=== PATIENT | male | born 1985 | race African-American/Black ===

== ENCOUNTER 2017-06-03 12:00 | Inpatient (IN) | payer SELFPAY ==
[2017-06-03] MEDS ORDERED: SODIUM CHLORIDE 0.9% 1000ML 1,000 ML IVS ONE (13:41)
[2017-06-03] MEDS ORDERED: PANTOPRAZOLE INJECTION 80 MG in SODIUM CHLORIDE 0.9% 100ML 80 ML IVPB ONE (13:41)
--- NOTE | 2017-06-03 13:49 | ED.PDOC ---
History of Present Illness - General Chief Complaint: Abdominal Pain Stated Complaint: right sided abdominal pain Time Seen by Provider: 06/03/17 13:39 Information Source: patient Exam Limitations: no limitations - History of Present Illness Initial Comments: Susan Butterfield 31 y/o male stated that he had stabbing epigastric pain since Wednesday -3 days ago after drinking 10 cans of beer and eating barbecue tried cranberry juice ,antacid vitamins to eased of the pain but not better also tried to eat but felt nauseated and felt not getting better decided to come to er.Had previous episode of pancreatitis a year ago. Abdominal Pain Onset Location: epigastric Pain Radiation: no radiation Quality: stabbing Timing/Duration: getting worse, other - 3 days Improving Factors: nothing Worsening Factors: eating Associated Symptoms: other - see hpi Review of Systems - Review of Systems Constitutional: States: no symptoms reported EENTM: States: no symptoms reported Respiratory: States: no symptoms reported Cardiology: States: no symptoms reported Gastrointestinal/Abdominal: States: see HPI Genitourinary: States: no symptoms reported Musculoskeletal: States: no symptoms reported Skin: States: no symptoms reported Past Medical History (General) - Patient Medical History Hx Congestive Heart Failure: No Hx Diabetes: No Hx Other PMH: Yes - pancreatitis-alcohol related Surgical History: no surgical history - Vaccination History Hx Influenza Vaccination: No - Social History Hx Tobacco Use: Yes Family Medical History - Family History Father Family History: Unknown Living Status: Unknown Hx Family Hypertension: Yes - multiple family members Physical Exam - Physical Exam General Appearance: Alert, Comfortable, No apparent distress Eyes, Ears, Nose, Throat Exam: normal ENT inspection, pharynx normal Neck: full range of motion, supple Respiratory: lungs clear, normal breath sounds Cardiovascular/Chest: normal peripheral pulses, regular rate, rhythm, no murmur Peripheral Pulses: No deficit Gastrointestinal/Abdominal: normal bowel sounds, soft, tenderness - epigastrium and mid abdomen Back Exam: no vertebral tenderness Extremity: non-tender, no pedal edema, no calf tenderness Neurologic: alert, normal mood/affect, oriented x 3 Progress - Progress Progress: 06/03/17 13:52 Vital Signs - 8 hr 06/03/17 12:09 Temperature 98 F Pulse Rate [ 89 Right Brachial] Respiratory 20 Rate Blood Pressure 187/98 [Right Arm] O2 Sat by Pulse 98 Oximetry - Results/Orders Results/Orders: Laboratory Tests 06/03/17 06/03/17 06/03/17 12:30 12:30 13:08 WBC 11.9 H RBC 4.89 Hgb 15.6 Hct 45.2 MCV 92.5 MCH 31.9 H MCHC 34.5 RDW 13.8 Plt Count 232 MPV 7.3 L Absolute Neuts (auto) 8.70 H Absolute Lymphs (auto) 2.20 Absolute Monos (auto) 0.80 Absolute Eos (auto) 0.10 Absolute Basos (auto) 0.10 Neutrophils % 73.6 Lymphocytes % 18.5 L Monocytes % 6.5 Eosinophils % 0.8 L Basophils % 0.6 Sodium 136 Potassium 3.8 Chloride 99 L Carbon Dioxide 29 Anion Gap 11.8 L BUN 12 Creatinine 1.04 BUN/Creatinine Ratio 11.5 Random Glucose 132 H Serum Osmolality 273.6 L Calcium 9.9 Total Bilirubin 0.5 AST 70 H ALT 111 H Alkaline Phosphatase 92 Serum Total Protein 9.1 H Albumin 4.9 Globulin 4.2 H Albumin/Globulin Ratio 1.2 Lipase 612 H Urine Color Anita Urine Appearance Clear Urine pH 7.0 Ur Specific Ririe 1.020 Urine Protein 100 H Urine Glucose (UA) Negative Urine Ketones Trace Urine Blood Negative Urine Nitrite Negative Urine Bilirubin Small H Urine Urobilinogen 0.2 Ur Leukocyte Esterase Negative Urine RBC 0 Urine WBC 0 Ur Epithelial Cells 0 Urine Bacteria 0 Urine Mucus Moderate Urine Opiates Screen Urine Barbiturates Ur Phencyclidine Scrn U Amphetamin/Meth Scrn U Benzodiazepines Scrn U Cocaine Metab Screen U Cannabinoids Screen 06/03/17 13:40 WBC RBC Hgb Hct MCV MCH MCHC RDW Plt Count MPV Absolute Neuts (auto) Absolute Lymphs (auto) Absolute Monos (auto) Absolute Eos (auto) Absolute Basos (auto) Neutrophils % Lymphocytes % Monocytes % Eosinophils % Basophils % Sodium Potassium Chloride Carbon Dioxide Anion Gap BUN Creatinine BUN/Creatinine Ratio Random Glucose Serum Osmolality Calcium Total Bilirubin AST ALT Alkaline Phosphatase Serum Total Protein Albumin Globulin Albumin/Globulin Ratio Lipase Urine Color Urine Appearance Urine pH Ur Specific [place] Urine Protein Urine Glucose (UA) Urine Ketones Urine Blood Urine Nitrite Urine Bilirubin Urine Urobilinogen Ur Leukocyte Esterase Urine RBC Urine WBC Ur Epithelial Cells Urine Bacteria Urine Mucus Urine Opiates Screen Negative Urine Barbiturates Negative Ur Phencyclidine Scrn Negative U Amphetamin/Meth Scrn Negative U Benzodiazepines Scrn Negative U Cocaine Metab Screen Negative U Cannabinoids Screen Negative - EKG/XRAY/CT CT Ordered: Yes - abd /p-pancreatitis;GB-sono No gallstone Departure - Departure Clinical Impression: Abdominal pain Qualifiers: Abdominal location: epigastric Qualified Code(s): R10.13 - Epigastric pain Pancreatitis, alcoholic, acute Qualifiers: Acute pancreatitis complication: no infection or necrosis Qualified Code(s): K85.20 - Alcohol induced acute pancreatitis without necrosis or infection Cirrhosis of liver without ascites Qualifiers: Hepatic cirrhosis type: alcoholic cirrhosis Qualified Code(s): K70.30 - Alcoholic cirrhosis of liver without ascites Time of Disposition: 16:46 Disposition: Admit Patient Condition: Fair Departure Forms: Patient Portal Self Enrollment Home Medications: Ambulatory Orders NK [NK] 06/03/17 Decision To Admit - Decistion To Admit Decision to Admit Reason: Admit from ER Decision to Admit Date: 06/03/17 - D/W Susana Hall -ANP/Hospitalist for admit Decision to Admit Time: 16:46
[2017-06-03] MEDS ORDERED: SODIUM CHLORIDE 0.9% 100ML 100 ML IVPB ONE (14:25)
[2017-06-03] MEDS ORDERED: PANTOPRAZOLE SODIUM IV 40 MG VIAL ONE ×2 (14:25→14:27)
--- NOTE | 2017-06-03 14:29 | CT ---
EXAM DESCRIPTION: Abdomen/Pelvis w/Contrast CLINICAL HISTORY: pain COMPARISON: None. TECHNIQUE: Postcontrast CT images of the abdomen and pelvis are obtained using standard imaging protocol. This exam was performed according to our departmental dose-optimization program, which includes automated exposure control, adjustment of the mA and/or kV according to patient size and/or use of iterative reconstruction technique . FINDINGS: Visualized lung bases are unremarkable. The liver is mildly enlarged 16.4 cm. Severe diffuse heterogeneous decreased attenuation of the liver compared to the spleen is seen. No enhancing hepatic mass is identified. The pancreas, adrenal glands, and gallbladder are unremarkable. Heterogeneous enhancement of the head of the pancreas seen. There is moderate fat stranding around the head and neck of the pancreas with fat stranding and fluid attenuation extending around the 2nd-3rd portion of the duodenum. Fluid attenuation extends caudally from the duodenum measuring 2.5 cm AP by 11 cm transverse. Along the aortic bifurcation. No significant fluid collection in the paracolic gutter or left upper quadrant is seen. No peripherally enhancing fluid collection is seen at this time. No free air. Kidneys and ureters are unremarkable. Urinary bladder is contracted but partly filled with contrast. Prostate is unremarkable. The appendix is partly visualized and appears unremarkable. No small bowel obstruction. Increased volume of formed fecal material in the rectosigmoid colon suggests mild fecal impaction. No pathologic lymphadenopathy is seen. Osseous structures show no aggressive bony lesions. IMPRESSION: CT shows evidence of acute pancreatitis with fluid and inflammation around the head and neck of the pancreas. Small amount of fluid extends caudal to the second and third portions of the duodenum. No peripherally enhancing thick walled, drainable fluid collections are seen at this time. Mild hepatomegaly with significant diffuse fatty infiltration of the liver is seen. No obvious biliary tract obstruction is seen. Consider further evaluation with ultrasound for better evaluation of the gallbladder. Electronically signed by: Arthur Isaac MD 06/03/2017 2:27 PM CDT
[2017-06-03] MEDS ORDERED: MORPHINE SULFATE INJ 10 MG/ML VIAL IV ONE ×3 (15:03→17:06)
--- NOTE | 2017-06-03 15:58 | US ---
EXAM DESCRIPTION: Gall Bladder CLINICAL HISTORY: 31 years Male, abdominal pain COMPARISON: None. FINDINGS: Right upper quadrant sonography demonstrates fair visualization of the pancreas with incomplete evaluation of the tail. A tiny wisp of ascites is evident at the tip of the liver. Moderate enlargement of the liver at 22 cm in length is present. Very subtle irregularity of the liver anterior surface suggests an element of mild cirrhosis but focal mass is not apparent. Increased echogenicity suggests fatty infiltration of the liver. The gallbladder is normally distended without wall thickening. Tiny amount of layering thick bile or sludge in the dependent portion without stones is evident. Common duct is estimated at 6 mm in diameter. The right kidney was not evaluated. Inferior venacavogram aorta were not visualized. IMPRESSION: 1. Hepatomegaly with echogenic slightly lobulated appearing liver suggesting an element of cirrhosis with minimal ascites. 2. Distended gallbladder without stones with a small amount of dependent thick bile or sludge within the gallbladder without acute inflammation. 3. 6 mm common bile duct at the upper limits of normal. Electronically signed by: Danie Andrew MD 06/03/2017 3:56 PM CDT
[2017-06-03] MEDS ORDERED: SODIUM CHLORIDE 0.9% 1000ML 1,000 ML IVS PRN (16:58)
--- NOTE | 2017-06-03 17:39 | HP ---
SUPERVISING PHYSICIAN: Chandler Braxton MD CHIEF COMPLAINT: Abdominal pain. HISTORY OF PRESENT ILLNESS: This is a 31-year-old male patient who lives in [place]. He has a history of chronic pancreatitis. He was working at a job here in [place] and went to [place] over the weekend and drank about 10 beers at a barbecue. On Wednesday, he started having some abdominal discomfort that progressed to nausea and vomiting and today his abdominal pain was so significant that he came to the Emergency Room. About a year ago, he also did some binge drinking and ended up in [facility] for pancreatitis. In the Emergency Room, his WBCs were 11.9 with hemoglobin 15.6 and hematocrit 45.2. Sodium 136, potassium 3.8, chloride 99, carbon dioxide 29, BUN 12, creatinine 1.04, glucose 132, bilirubin 0.5, calcium 9.9, AST 70, ALT 111, alkaline phosphatase 92, lipase 612. Urinalysis was basically within normal limits with the exception of his urine protein was 100 and urine bilirubin showed a small amount. Toxicology UDS was negative . Abdominopelvic CT per radiologic interpretation showed evidence of acute pancreatitis with fluid and inflammation around the head and neck of the pancreas, mild hepatomegaly with significant diffuse fatty infiltration of the liver is seen, no obvious biliary tract obstruction is seen. Consider further evaluation with ultrasound of the gallbladder. Gallbladder ultrasound was done and per radiologic interpretation showed hepatomegaly with echogenic slightly lobulated appearing liver suggesting an elevated cirrhosis with minimal ascites, distended gallbladder without stones with a small amount of dependent thick bile or sludge within the gallbladder without acute inflammation, and 6 mm common bile duct at the upper limits of normal. He received some morphine in the Emergency Room for pain. He also received some pantoprazole as well as some IV fluids. I was called for admission to the hospital. PAST MEDICAL HISTORY: 1. Pancreatitis. 2. Hypertension, but he has never received any treatment. PAST SURGICAL HISTORY: None. OUTPATIENT MEDICATIONS: None. ALLERGIES: no known drug allergies. SOCIAL HISTORY: He lives in [place]. 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 He is unmarried. He has three children. He smokes tobacco very rarely. He very seldom drinks alcoholic beverages, but he does admit to binge drinking on occasion. He denies any illicit drug use. REVIEW OF SYSTEMS: GENERAL: Negative for fever, fatigue or weight changes. HEENT: Negative for sinus symptoms, ear pain, vision changes or sore throat. RESPIRATORY: Negative for wheezing, coughing or shortness of breath. CARDIAC: Negative for chest pain, palpitations or tachycardia. GASTROINTESTINAL: Positive for right upper and epigastric abdominal pain with nausea and vomiting. He has had diarrhea for approximately eight months. Denies constipation. NEUROLOGIC: Negative for headache, dizziness or seizures. PHYSICAL EXAMINATION: VITAL SIGNS: Afebrile. Heart rate 76. Blood pressure 153/97. It has gotten as high as 198/103. Respiratory rate 20. O2 saturation 96% on room air. GENERAL: This is a 31-year-old black male patient who is sitting up in his hospital bed. He looks to be in mild to moderate discomfort. HEENT: Normocephalic, atraumatic. Pupils are equal and reactive. Oropharynx is clear. NECK: Supple without mass. RESPIRATORY: Clear to auscultation bilaterally. CHEST: There is equal rise and fall of the chest with inspiration and expiration. CARDIOVASCULAR: Regular rate and rhythm. ABDOMEN: Soft. It is moderately tender in the epigastric and right upper quadrant area. There is no rebound tenderness. Bowel sounds are positive. EXTREMITIES: No cyanosis, clubbing or edema. NEUROLOGIC: Awake, alert and oriented times three. LABORATORY: Labs and films are as per the history of present illness. ASSESSMENT: 1. Acute on chronic pancreatitis. 2. Hepatomegaly with diffuse infiltration of the liver and question of cirrhosis of the liver. 3. Distended gallbladder without evidence of stone or acute inflammation, but containing a small amount of sludge. 4. Hypertension, presently on no treatment. 5. Right upper quadrant epigastric abdominal pain, most likely secondary to #1. 6. Elevated liver enzymes. 7. Poor medical compliance. PLAN: We will admit the patient to the hospital. He will be placed on bowel rest with some IV fluids. We will get fentanyl for pain as well as IV Protonix. His blood pressure is somewhat elevated and I will put a Catapres patch on him. I will also consult Boiler/Chiller Operator as well as consult Dr. Byers. He will have routine lab in the morning as well as abdominal x-ray. We will do stool studies and Lovenox for DVT prophylaxis. I will also order hemoglobin A1c in the morning. We will continue to monitor the patient closely and follow as needed. Dr. Braxton is the collaborating physician and available for consultation. [facility][id number] [facility]
[2017-06-03] MEDS ORDERED: MORPHINE SULFATE INJ 10 MG/ML VIAL IV PRN (18:06)
[2017-06-03] MEDS ORDERED: fentaNYL CITRATE INJ 50 MCG/ML AMP ONE ×2 (18:13→20:36)
[2017-06-03] MEDS ORDERED: fentaNYL CITRATE INJ 50 MCG/ML AMP IV PRN (18:13)
[2017-06-03] MEDS: KCL 20MEQ/D5NS 1,000 ML IVS PRN (20:37)
[2017-06-03] MEDS: IV SET AND CAP CHANGE INJ INJ SCH (20:58)
[2017-06-03] MEDS: SODIUM CHLORIDE 0.9% (FLUSH) 10 ML SYG IV SCH (20:59)
[2017-06-03] MEDS ORDERED: ONDANSETRON INJ 4 MG/2 ML VIAL IV PRN (21:49)
--- NOTE | 2017-06-03 21:54 | PCM.CORE ---
Physician DVT/VTE - Prophylaxis Currently: Patient already on anticoagulation therapy - 5 or more Very High Risk Treatments: Early Ambulation *, Sequential Compression Device
[2017-06-03] MEDS ORDERED: cloNIDine PATCH 0.2 MG/24HR 0.2 MG PATCH TD SCH (22:00)
[2017-06-03] MEDS ORDERED: ENOXAPARIN SODIUM 40 MG/0.4 ML SYG SUBCU SCH (22:00)
[2017-06-03] MEDS: fentaNYL CITRATE INJ 50 MCG/ML AMP IV PRN (23:22)
[2017-06-04] MEDS ORDERED: METOPROLOL TARTRATE INJ 5 MG/5 ML VIAL IV ONE ×2 (02:19→09:31)
[2017-06-04] MEDS: fentaNYL CITRATE INJ 50 MCG/ML AMP IV PRN ×6 (03:02→23:38)
[2017-06-04] MEDS: KCL 20MEQ/D5NS 1,000 ML IVS PRN ×2 (04:58→16:21)
[2017-06-04] MEDS: PANTOPRAZOLE SODIUM IV 40 MG VIAL IV SCH (06:04)
--- NOTE | 2017-06-04 07:03 | RAD ---
EXAM DESCRIPTION: Abdomen Flat Upright CLINICAL HISTORY: abd pain COMPARISON: 06/03/2017 FINDINGS: 2 views of the abdomen. No definite free intraperitoneal air. No dilated loops of large or small bowel identified. No acute osseous abnormalities. IMPRESSION: 1. Nonobstructive bowel gas pattern. Electronically signed by: Francisco Heredia 06/04/2017 7:01 AM CDT
[2017-06-04] MEDS: levoFLOXacin 750MG IV 750 MG in PREMIX BAG 1 BAG IVPB SCH (09:20)
[2017-06-04] MEDS: SODIUM CHLORIDE 0.9% (FLUSH) 10 ML SYG IV SCH (09:20)
[2017-06-04] MEDS ORDERED: metroNIDAZOLE IV PREMIX 500MG 100 ML IVPB ONE ×3 (09:57→20:33)
[2017-06-04] MEDS: metroNIDAZOLE IV PREMIX 500MG 500 MG in PREMIX BAG 1 BAG IVPB SCH ×2 (11:30→18:27)
--- NOTE | 2017-06-04 13:17 | CONS ---
DATE OF CONSULTATION: 06/04/17 HISTORY OF PRESENT ILLNESS: The patient is a 31-year-old male who was admitted through the Emergency Room with abdominal pain and workup was consistent with pancreatitis. He has a history of this like illness about a year ago when he was treated at [facility]. He got no followup after this. The patient states the symptoms began after drinking a number of beers at a barbecue this weekend. There is no history of hepatitis or jaundice in the past. He denies IV drug use. He states he drinks intermittently. PAST MEDICAL HISTORY: 1. Pancreatitis. 2. Hypertension. PAST SURGICAL HISTORY: None. CURRENT MEDICATIONS: He takes no medications on a routine basis. ALLERGIES: NO KNOWN DRUG ALLERGIES. FAMILY HISTORY: Negative for malignancies. Positive for diabetes and heart disease. SOCIAL HISTORY: The patient is single. He has three children. He smokes when he drinks. He does construction work/ REVIEW OF SYSTEMS: Unremarkable except as noted in the past medical history and history. PHYSICAL EXAMINATION: GENERAL: The patient is awake, alert, cooperative, in mild distress. VITAL SIGNS: The patient is currently afebrile, normotensive. HEENT: Sclerae nonicteric. Mucous membranes moist. NECK: Without adenopathy. BACK: Without CVA tenderness. CHEST: Equal breath sounds bilaterally. HEART: Regular rate and rhythm. ABDOMEN: Soft. There is mild diffuse tenderness in the right upper quadrant and the epigastrium. There are no masses. No guarding is noted. Bowel sounds are positive. RECTAL: Deferred. EXTREMITIES: Without cyanosis, clubbing or edema. LABORATORY: Potassium up to 4.2 from 3.8. Creatinine is down to 0.89 from 1.04. Calcium is 8.8, down from 9.9. Liver functions are improved. The only elevation is ALT 71. It was 111 yesterday. His lipase, however, is up from 612 to 919 and his amylase is 103. Hemoglobin is stable from 15.6 to 15.3. White count went up to 15,000 from 11,900. Neutrophils went from 73 to 87. Platelet count 179,000. CT scan is consistent with acute pancreatitis and sludge. There is also question of a small amount of cirrhotic liver and possible amount of ascites. Ultrasound essentially is the same. ASSESSMENT: 1. Acute pancreatitis, likely alcoholic in nature, possibly biliary in nature. lipid studies are pending. PLAN: Bowel rest. Although he is improved, we will await chemical improvement before beginning diet, which hopefully will be in the morning. He will be given analgesia as needed, but he is much improved from that point of view. He has been started on antibiotics due to the increase his white count, however, hopefully he will remain afebrile. #[id number] [facility]
--- NOTE | 2017-06-04 20:03 | PN ---
DATE: 06/04/17 SUPERVISING PHYSICIAN: Chandler Braxton M.D. SUBJECTIVE: The patient is lying in his hospital bed. He is sleeping. He awakens easily. Continues complaints of his right upper quadrant and epigastric abdominal pain but it has improved since yesterday. The patient was cautioned not to drink any alcoholic beverages due to the severity of his illness. He has no complaints of nausea, vomiting, chest pain or shortness of breath. OBJECTIVE: VITAL SIGNS: He is afebrile, heart rate 96, blood pressure 166/91 but it has gone up as high at 175/105. Respiratory rate is 19, O2 sat is 97% on room air. RESPIRATORY: Essentially clear to auscultation bilaterally. CARDIAC: Regular rate and rhythm. ABDOMEN: Soft, nondistended, mildly tender in the epigastric and right upper quadrant. There is no rebound tenderness. Bowel sounds are positive. EXTREMITIES: No cyanosis, clubbing or edema. NEUROLOGIC: He is awake, alert and oriented times three. LABORATORY: WBCs have elevated to 15,000 with hemoglobin 15.3 and hematocrit 44.2, neutrophils 87%. Electrolytes are basically within normal limits, but his glucose is 147 with serum osmolality of 271.5. Liver enzymes have normalized with the exception of his ALT is still slightly elevated at 71. Amylase is 1,003, lipase has increased from 612 yesterday to 929 today. His preliminary blood cultures are negative to date. RADIOLOGY: Abdominal x-ray shows a nonobstructive bowel gas pattern. All other labs and films have been reviewed via the EMR. ASSESSMENT: 1. Acute on chronic pancreatitis. 2. Hepatomegaly with diffuse infiltration of the liver and question of cirrhosis of the liver most likely alcoholic cirrhosis. 3. Distended gallbladder without evidence of stone or acute inflammation, but containing a small amount of sludge. 4. Hypertension presently on a Catapres patch. 5. Right upper quadrant epigastric abdominal pain most likely secondary to #1. 6. Elevated liver enzymes that have improved. 7. Poor medical compliance. PLAN: We will continue present supportive care. I have added Flagyl and Levaquin antibiotic therapy. He will continue on bowel rest and if he has no abdominal pain overnight or nausea and vomiting, will advance him to a clear liquid diet tomorrow. He has been cautioned against drinking under any circumstance and he will need a followup in [place] when he gets back home for his pancreatitis as well as his possible cirrhosis and cholecystitis. I have ordered routine labs including an amylase and lipase in the morning. I will continue to encourage good pulmonary hygiene. We will continue to monitor the patient closely and follow as needed. Dr. Braxton is the collaborating physician available for consultation. #[id number] [facility]
[2017-06-04] MEDS: ENOXAPARIN SODIUM 40 MG/0.4 ML SYG SUBCU SCH (20:45)
[2017-06-05] MEDS: metroNIDAZOLE IV PREMIX 500MG 500 MG in PREMIX BAG 1 BAG IVPB SCH ×3 (03:28→18:51)
[2017-06-05] MEDS: KCL 20MEQ/D5NS 1,000 ML IVS PRN (03:35)
[2017-06-05] MEDS: fentaNYL CITRATE INJ 50 MCG/ML AMP IV PRN ×5 (04:37→22:10)
[2017-06-05] MEDS: PANTOPRAZOLE SODIUM IV 40 MG VIAL IV SCH (06:31)
[2017-06-05] MEDS ORDERED: fentaNYL CITRATE INJ 50 MCG/ML AMP IV PRN (08:55)
[2017-06-05] MEDS: levoFLOXacin 750MG IV 750 MG in PREMIX BAG 1 BAG IVPB SCH (09:06)
[2017-06-05] MEDS ORDERED: METOPROLOL TARTRATE 50 MG TAB PO SCH (10:00)
[2017-06-05] MEDS ORDERED: metroNIDAZOLE IV PREMIX 500MG 100 ML IVPB ONE ×2 (12:12→18:40)
--- NOTE | 2017-06-05 13:58 | PN ---
DATE: 06/05/17 SUPERVISING PHYSICIAN: Chandler Braxton M.D. SUBJECTIVE: The patient is lying in bed. His friend is at the bedside. He continues complaints of epigastric and right upper quadrant abdominal pain but says it is slightly improved. He denies any chest pain, shortness of breath, nausea, vomiting or diarrhea. He has been tolerating a clear liquid diet without problems. OBJECTIVE: VITAL SIGNS: Temperature 99.2, heart rate 112, blood pressure 148/76 , respiratory rate 20, O2 sats are 95% on room air. RESPIRATORY: Essentially clear to auscultation bilaterally. CARDIAC: Tachycardic rate, regular rhythm. ABDOMEN: Soft but continues to be tender in the epigastric and right upper quadrant areas. No rebound tenderness. Bowel sounds are positive. EXTREMITIES : No cyanosis, clubbing or edema. NEUROLOGIC: He is awake, alert and oriented times three. LABORATORY: White count has slightly improved to 14.3 with hemoglobin 13.9 and hematocrit 40.7. Sodium is slightly low at 134, potassium 3.7, chloride 102, carbon dioxide 25, BUN 9, creatinine 0.96, serum osmolality 267.2. Amylase has improved to 703 from 1,003 yesterday and his lipase was 929 yesterday, and is 421 today. Preliminary blood cultures are negative after 24 hours. All other labs and films have been reviewed via the EMR. ASSESSMENT: 1. Acute on chronic pancreatitis. 2. Hepatomegaly with diffuse infiltration of the liver and question of cirrhosis of the liver most likely alcoholic cirrhosis. 3. Distended gallbladder without evidence of stone or acute inflammation but containing a small amount of sludge. 4. Hypertension. 5. Right upper quadrant epigastric abdominal pain most likely secondary to #1. 6. Elevated liver enzymes that continue to improve. 7. Mild tachycardia. 8. Poor medical compliance. PLAN: We will continue present supportive care. He continues to be on IV pain medications quite frequently. He has tolerated his clear liquid diet without any issues. I have discontinued his Catapres patch as well as his IV fluids because he is taking clear liquids without problems. I have instructed him that he will have to remain in the hospital as long as he gets his IV pain medications. I started him on some Metoprolol for his blood pressure as well as his mild tachycardia and he will need a prescription when he is discharged for the Metoprolol. Again, I have encouraged him to cease drinking any alcoholic beverages and he will need to get a physician in [place] when he returns home. I have encouraged frequent ambulation and good pulmonary hygiene. We will continue to monitor the patient closely and follow as needed. Dr. Braxton is the collaborating physician available for consultation. #[id number] [facility]
[2017-06-05] MEDS ORDERED: KCL 20MEQ/D5NS 1,000 ML IVS PRN (16:07)
[2017-06-05] MEDS ORDERED: DEX 5% W/NACL 0.9% 1000ML 1,000 ML IVS ONE (17:04)
[2017-06-05] MEDS ORDERED: POTASSIUM CHLORIDE 10mEq 5ML VIAL ONE (17:05)
[2017-06-05] MEDS: METOPROLOL TARTRATE 50 MG TAB PO SCH (17:23)
[2017-06-05] MEDS: traMADol HCL 50 MG TAB PO PRN (20:25)
[2017-06-05] MEDS: ENOXAPARIN SODIUM 40 MG/0.4 ML SYG SUBCU SCH (20:59)
[2017-06-06] MEDS ORDERED: metroNIDAZOLE IV PREMIX 500MG 100 ML IVPB ONE ×3 (02:37→18:38)
[2017-06-06] MEDS: metroNIDAZOLE IV PREMIX 500MG 500 MG in PREMIX BAG 1 BAG IVPB SCH ×3 (02:47→18:43)
[2017-06-06] MEDS: SODIUM CHLORIDE 0.9% (FLUSH) 10 ML SYG IV PRN ×2 (06:25→19:45)
[2017-06-06] MEDS: PANTOPRAZOLE SODIUM IV 40 MG VIAL IV SCH (06:25)
[2017-06-06] MEDS: traMADol HCL 50 MG TAB PO PRN ×3 (07:41→20:37)
[2017-06-06] MEDS: METOPROLOL TARTRATE 50 MG TAB PO SCH ×2 (07:41→17:17)
[2017-06-06] MEDS: levoFLOXacin 750MG IV 750 MG in PREMIX BAG 1 BAG IVPB SCH (09:20)
--- NOTE | 2017-06-06 15:06 | PN ---
DATE: 06/06/17 SUPERVISING PHYSICIAN: Chandler Braxton M.D. SUBJECTIVE: The patient has been ambulating in the [place]. He has been tolerating a clear liquid diet, although he continues to have some ongoing pain to his epigastrium and left upper quadrant region. He has had no nausea or vomiting. He has been requiring ongoing Fentanyl but has been slowly transitioning to p.o. medicines with good results. OBJECTIVE: VITAL SIGNS: He remains afebrile, T max 99.4, pulse 75, blood pressure 149/84, respirations 20, satting 96% on room air. I's and O's show a positive balance of 2718 with 3821 in, 1100 out. He has had several bowel movements. Weight 91.8 kg. CHEST: Lungs are clear to auscultation bilaterally. HEART: Regular rate and rhythm. ABDOMEN: Obese but soft with some continued tenderness noted over the epigastric and right upper quadrant region. Bowel sounds are present. There is no rebound tenderness. EXTREMITIES : No clubbing, cyanosis or edema. NEUROLOGIC: He is alert and oriented times three. LABORATORY: White count is showing a persistent leukocytosis at 15,700, hemoglobin 12.6, hematocrit 37.3, platelet count 158,000. Differential continues to show a left shift. Chemistries shows a mild hyponatremia with sodium 133, potassium 3.6, BUN 9, creatinine 0.86. Pancreatic enzymes are showing improvement. Amylase is down to 311 from 703 the previous day with lipase going down to 147 compared to previous at 421. MICROBIOLOGY: Stool cultures showed no enteric pathogens at 24 hours. Blood cultures remain negative at 48 hours. ASSESSMENT: 1. Acute on chronic pancreatitis showing improvement with diet control and IV fluids. 2. Hepatomegaly with diffuse infiltration of the liver with question of cirrhosis of the liver most likely alcoholic cirrhosis. 3. Distended gallbladder without any evidence of stone or acute inflammatory process but noted large amount of sludge. 4. Hypertension. 5. Right upper quadrant epigastric abdominal pain likely secondary to number 1. 6. Elevated liver enzymes on admission improved with treatment. 7. Mild tachycardia. 8. Poor medical compliance. PLAN: The patient is tolerating a clear liquid diet. He will remain on that today as he still has a little pain on palpation of the abdomen, although he denies severe pain. He is encouraged to ambulate today. Will deescalate his pain management regimen and try oral pain medication with Tramadol today, and should he show improvement in laboratory studies and decrease pain management requirement, advance his diet tomorrow to a no fat diet. Will continue to monitor his blood pressure as he showed good improvement with initiation of Metoprolol. He is again encouraged to stop drinking alcohol and limit use of Tylenol. I have encouraged oral intake and after he has shown good adequate intake, will discontinue his fluids and saline lock him. Will anticipate hopefully discharging tomorrow. Until then, will continue to monitor and treat appropriately. #[id number] [facility]
[2017-06-06] MEDS: IV SET AND CAP CHANGE INJ INJ SCH (17:21)
[2017-06-06] MEDS: SODIUM CHLORIDE 0.9% (FLUSH) 10 ML SYG IV SCH (20:35)
[2017-06-06] MEDS: ENOXAPARIN SODIUM 40 MG/0.4 ML SYG SUBCU SCH (20:36)
[2017-06-06] MEDS ORDERED: LISINOPRIL 10 MG TAB PO ONE (22:43)
[2017-06-07] MEDS ORDERED: metroNIDAZOLE IV PREMIX 500MG 100 ML IVPB ONE (02:35)
[2017-06-07] MEDS: traMADol HCL 50 MG TAB PO PRN (03:05)
[2017-06-07] MEDS: SODIUM CHLORIDE 0.9% (FLUSH) 10 ML SYG IV PRN ×2 (03:05→06:49)
[2017-06-07] MEDS: metroNIDAZOLE IV PREMIX 500MG 500 MG in PREMIX BAG 1 BAG IVPB SCH (03:06)
[2017-06-07] MEDS: PANTOPRAZOLE SODIUM IV 40 MG VIAL IV SCH (06:49)
[2017-06-07 07:27] VITALS: TEMP 98.2
[2017-06-07] MEDS: METOPROLOL TARTRATE 50 MG TAB PO SCH (08:05)
[2017-06-07] MEDS: SODIUM CHLORIDE 0.9% (FLUSH) 10 ML SYG IV SCH (08:06)
[2017-06-07] MEDS: levoFLOXacin 750MG IV 750 MG in PREMIX BAG 1 BAG IVPB SCH (08:06)
[2017-06-07] MEDS ORDERED: LISINOPRIL 10 MG TAB PO SCH (10:30)
[2017-06-07 10:54] VITALS: BP 153/97; O2SAT 99
[2017-06-07] MEDS ORDERED: metroNIDAZOLE 500 MG TAB PO SCH (11:00)
[2017-06-08] MEDS ORDERED: PANTOPRAZOLE SODIUM TAB 40 MG PO SCH (06:30)
[2017-06-08] MEDS ORDERED: levoFLOXacin 500 MG TAB PO SCH (09:00)
--- NOTE | 2017-06-08 09:03 | DS ---
SUPERVISING PHYSICIAN: Danie Llamas MD DISCHARGE DIAGNOSIS: 1. Acute on chronic pancreatitis, improving with IV fluids and diet control. 2. Hepatomegaly with diffuse infiltration of the liver with question of cirrhosis of the liver, most likely alcoholic cirrhosis. 3. Distended gallbladder without any evidence of acute cholecystitis with a large amount of sludge noted on CT. 4. Hypertension. 5. Right upper quadrant epigastric abdominal pain, secondary to #1. 6. Elevated liver enzymes on admission, showing improvement with treatment. 7. Mild tachycardia, improving with IV fluids. 8. Poor medical compliance. HISTORY OF PRESENT ILLNESS: Mr. Butterfield is a 31-year-old male patient who lives in [place]. He has a history of chronic pancreatitis. He was working at a job here in [place] and went to a alliance party over the weekend and drank about 10 beers at a [employer]. On Wednesday morning, he started having some abdominal discomfort that progressed to nausea and vomiting and on date of admission his abdominal pain was so significant that he came to the Emergency Room. About a year previously, he also did some binge drinking and ended up in [facility] for pancreatitis. In the Emergency Room, his white count was 11.9 with hemoglobin 15.6 and hematocrit 45.2. Liver enzymes showed AST 70, ALT 111 with alkaline phosphatase 92. Pancreatic enzymes showing lipase 612. Abdominopelvic CT per radiologic interpretation showed evidence of acute pancreatitis with fluid and inflammation around the head and neck of the pancreas, mild hepatomegaly with significant diffuse fatty infiltration of the liver is seen, no obvious biliary tract obstruction is seen. Gallbladder ultrasound was also completed and per radiologic interpretation showed hepatomegaly with echogenic gallbladder with no stones with a small amount of dependent thick bile or sludge within the gallbladder without acute inflammation , and 6 mm common bile duct at the upper limits of normal. He received some morphine in the Emergency Room for pain. He also received some pantoprazole as well as some IV fluids. He was admitted to the Medical/Surgical Floor in stable condition. LABORATORY: Initial white count was 11,900. At discharge, it was 14,700 with hemoglobin 13.1 and hematocrit 37.7, platelet count 193,000. Differential showed initially left shift which showed improvement prior to discharge. Chemistries initially on admission showed normal electrolytes with BUN 12, creatinine 1.04. Initial liver enzymes showed AST 70, ALT 11, alkaline phosphatase normal at 92 with amylase and lipase showing elevation initially with lipase 612, amylase went up to a maximum of 103. Lipase peaked at 929 and prior to discharge, lipase was down to 121, amylase down to 183. He had a mild hypokalemia and hyponatremia with sodium 134, potassium 3.3, BUN 9, creatinine 0.77. Magnesium was normal at 2.1. Calcium remained within normal limits and at discharge was 8.6. Urinalysis showed just a small amount of bilirubin with just 100 of protein. Otherwise, within normal limits. Stool occult blood was negative. Urine drug screen was negative. He had O&P sent to lab and pending at time of discharge. MICROBIOLOGY: Sputum culture showed preliminary no growth of organisms isolated at 48 hours. Stool occult was negative. Leukocyte esterase was positive. Two sets of blood cultures remained negative at 4 days. C. difficile toxin A and B screen was negative. RADIOLOGY: In the Emergency Department, he had an abdominopelvic CT and per radiologic interpretation there was note of acute pancreatitis with fluid and inflammation around the head and neck of the pancreas. There was also note of a small amount of fluid that extends to the second and third portions of the duodenum. No peripherally enhancing thick wall or drainable fluid collections were seen. On initial CT exam, there was mild hepatomegaly with significant diffuse fatty infiltration of the liver noted. There was no obvious biliary tract obstruction. Recommendation was for a gallbladder ultrasound. This was completed in the Emergency Department prior to admission and per radiologic interpretation showed hepatomegaly with echogenic, slightly lobulated appearing liver suggesting an element of cirrhosis with minimal ascites. Also of note was a distended gallbladder without stones with a small amount of dependent thick bile or sludge within the gallbladder without acute inflammation. Also noted was a 6 mm common bile duct at the upper limits of normal. HOSPITAL COURSE: Mr. Butterfield was admitted as noted in the history of present illness on 06/03/17 for acute pancreatitis. He was made NPO, started on antibiotic therapy and given fluids, pain management and antiemetics. He did have a consultation with Dr. Byers, general surgeon. Please see his note for full details. The patient required fairly aggressive pain management initially with fentanyl and morphine IV. As he improved clinically, he was able to go to oral pain management. He was initially started on a clear liquid diet. This was advanced prior to discharge to a low fat, low cholesterol diet with instructions to ambulate, which he was able to do without any significant pain. He was no longer having any nausea or vomiting. His pain subsided. His liver enzymes and pancreatic enzymes were returning to normal. It was felt he was clinically stable enough at this point to be discharged home to continue with outpatient treatment plan. PLAN: Mr. Butterfield was discharged on 06/07/17 with instructions to followup in [place] with primary care provider of choice and to have close clinical followup with gastroenterology with regard to the elevated labs and acute pancreatitis. He was cautioned to avoid alcohol and to eat a low fat, low cholesterol diet. NEW DISCHARGE MEDICATIONS 1. Levaquin 500 mg daily, #5. 2. Lisinopril 10 mg daily, #30. 3. Lopressor or metoprolol tartrate 50 mg twice daily, #60. 4. Flagyl 500 mg q.8h., #15. 5. Protonix mg at 6:30 in the morning before breakfast, #30. DIET AT DISCHARGE: Low fat, low cholesterol diet. ACTIVITY: As tolerated. He was instructed to be away from work for at least an additional 24 to 48 hours after which time he can slowly return to work if cleared by his primary care provider. CONDITION AT DISCHARGE: Stable and improved. #[id number] [facility]
== END 2017-06-07 14:21 | disposition home or self-care (01) | DRG 440 ==
LOC: ER 12:00 → MS 17:38
PROVIDERS: ADMIT Nurse Practitioner Acute Care; ATTEND Nurse Practitioner Family
PROC: BW21YZZ Computerized Tomography (CT Scan) of Abdomen and Pelvis using Other Contrast (ICD-10-PCS; principal; 2017-06-03)
DX: K85.20 Alcohol induced acute pancreatitis without necrosis or infection (principal); K86.1 Other chronic pancreatitis; K70.30 Alcoholic cirrhosis of liver without ascites; K76.0 Fatty (change of) liver, not elsewhere classified; I10 Essential (primary) hypertension; R00.0 Tachycardia, unspecified; F17.210 Nicotine dependence, cigarettes, uncomplicated; Z91.19 Patient's noncompliance with other medical treatment and regimen